=== PATIENT | female | born 1985 | race Caucasian/White ===

== ENCOUNTER 2025-07-12 01:58 | Inpatient (IN) | payer SELFPAY ==
--- OUTSIDE RECORDS SUMMARY | 2021-11-07 04:37 | XMS_ITS | Continuity of Care Document ---
Author Organization [facility] Address [address] [facility] [place] [address] Phone Care Team Providers Care Gum Machine Filler Name Role Phone Delphine Erickson MD Unavailable Unavailable Allergies, Adverse Reactions, Alerts Substance Reaction Status Criticality Penicillins Unknown Active No Information Medications Medication Instructions Dosage Effective Dates (start - stop) Status Comments buprenorphine 8 mg-naloxone [address] 1 tablet by sublingual route 2 times every day allow to dissolve slowly in mouth without chewing or swallowing 1 tablet - Active DEAX: [id number] ferrous sulfate 325 mg (65 mg iron) tablet take 1 tablet by oral route 2 times every day 325 MG - Active ergocalciferol (vitamin D2) 1,250 mcg (50,000 unit) capsule take 1 capsule by oral route every week - Active ProAir HFA 90 mcg/actuation aerosol inhaler inhale 2 puff by inhalation route every 4 - 6 hours as needed - Active Lexapro 10 mg tablet take 1 tablet by oral route every day 10 MG - Active Procedures Procedure Date OFFICE/OUTPATIENT VISIT EST OFFICE/OUTPATIENT VISIT EST OFFICE/OUTPATIENT VISIT NEW Advance Directives Directive Yes / No Effective Date File Name No Information Encounters Encounter Description Practice Location Reason(s) For Visit Diagnoses Date Provider Providers Copied on Encounter [email or web address], [address] [facility] [place], [id number], [place] tel:[phone] [facility] No Information b-2 2 Partamian Krikor. [address] [place] [address], [id number], [place]. tel:[phone] OFFICE/OUTPA TIENT VISIT [facility], [address] [place], [place], [id number], [place] tel:[phone] [facility] 1 week mat f/u (chief complaint) Opioid dependence, uncomplicated b-1 2 Partamian Krikor. [address] [place] [address], [id number], [place]. tel:[phone] Referring Provider: Delphine Ann, [address] [place] [address], [id number] . tel:[phone] OFFICE/OUTPA TIENT VISIT [facility], [address] [place] [address], [id number], [place] tel:[phone] [facility] PT (chief complaint) Opioid dependence, uncomplicated b-0 2 Partamian Krikor. [address] [place] [address], [id number], [place]. tel:[phone] Referring Provider: Delphine Ann, [address] [place] [address], [id number] . tel:[phone] [facility], [address] [place] [address], [id number], [place] tel:[phone] [facility] Opioid dependence, uncomplicatedO ther retirement (current) drug therapy b-0 2 Partamian Krikor. [address] [place] [address], [id number], [place]. tel:[phone] [facility], [address] [place] [address], [id number], [place] tel:[phone] [facility] No Information Feb-0 2 Yeseniact Jones. [address] [place] [address], [id number], [place]. tel:[phone] OFFICE/OUTPA TIENT VISIT [facility], [address] [facility], [place], [place], [id number], [place] tel:[phone] [facility] Establishing care (chief complaint) Body mass index (BMI) 22.0-22.9, adultOpioid dependenceMajo r depressive disorder, recurrent, moderateDizzin ess and giddinessNicot ine dependence, cigarettes, uncomplicated 2 Maru Jones. [address] [place], [address], [place]. tel:[phone] Referring Provider: Karen Mahoney, [address] [place], [address]. tel:[phone] Family History Family Member Type Diagnosis Age At Onset Brother Problem attention defici t hyperactivity disorder Father Problem Cardiovascular disease Brother Problem Alive and well Brother Problem depression Mother Problem (finding) Paternal grandfather Problem heart attack Sister Problem Alive and well Sister Problem Bipolar schizophrenic Payers Payer name Insurance type Covered alliance party ID Gina celaya(s) Slide A Payer [phone] Social History Type Description Quantity Date Captured Comments Sex Female Smoking Status No Information Sexual Orientation Straight or heterosexual Gender Identity Female Chief Complaint And Reason For Visit No Information Reason For Referral Reason For Referral No Information Plan Of Treatment Date Type Action Status Goal Pap/HPV testing. Due on due Goal Td vaccine. Due on due Goal Depression scree shiv. Due on due Goal Influenza vaccine. Due on due Goal Tdap. Due on due Goal Td vaccine. Due on due Goal Pap/HPV testing. Due on due Goal Depression scree shiv. Due on due Goal Tdap. Due on due Goal Influenza vaccine. Due on due Goal Influenza vaccine. Due on due Goal Pap/HPV testing. Due on due Goal Depression scree shiv. Due on due Goal Tdap. Due on due Goal Td vaccine. Due on due Goal Pap/HPV testing. Due on due Goal Td vaccine. Due on due Goal Depression scree shiv. Due on due Goal Influenza vaccine. Due on due Goal Tdap. Due on due Goal Lifestyle education regardin g diet completed Referral Ordered: Referrals: Addiction Rehabilitation ordered Future Order: Lab Order DRUG MON ITOR, BUP AND NALOXONE, QN, URINE ([id number]), Scheduled for: Ordered Future Order: Lab Order DRUG MON ITOR, FENTANYL, QN, URINE ([id number]), Scheduled for: Ordered Future Order: Lab Order DRUG MON ITOR, PANEL 1, W/CONF, W/DL, URINE ([id number]), Scheduled for: Ordered History Of Present Illness Encounter Date Complaint History Of Prese nt Illness 1 week mat f/u Current dose: 16 mg Is your current dose working well for you: yes Are you taking films or tab tab- she doesnt think it work as well as films Are having any cravings: noAre you experiencing any withdrawal symptoms:Have you relapsed on any illicit substance since your last f/u: noDid you have enough medication to get you to your appt today: yes UDS collected this datePrevious lab results reviewedReviewed proper administration techniqueDo you have Narcan:Have you used your Narcan:What pharmacy [facility] you use[facility] Have you taken S uboxone yesIf taken Suboxone before, was it prescribed or bought off the street: streetWhat dose worked for you: 16mgWhat did you use last: norcoWhen was your last use: 5 months agoDo you have Narcan: noDo you prefer films or tabs: filmsWhat [facility] reviewed with patient and verbalizes understandingDiscussed side effectsReviewed program expectations, including UDS at every visitEducation provided on precipitated withdrawalReviewed procedure for lost/stolen medication and that the pt is responsible to keep medication safe.BH INTAKE: started when she left her fiance of 5 years, depressed, and angry, started to take norco 5-6 a day not prescribed to her. she states that she was told by a friend to take Suboxone and states that she has been taking it off the street. she states that she has been taking 2 Suboxone a day and it is working well for her. she states that she has been clean off of opiates for about 4 months. Establishing care Pt. would like to be referred to MAT program. Pt. states she is having dizzy spells that are constant. Dizziness happens with change of position and movement of head. Pt also states she has blurry vision with/without dizzy spells. Pt. Mother just passed recently.//RWRMADizziness has been getting worse over the past year. Feels imbalanced. The occurrence is random. No known head injury. The spells typically last between 5-10 minutes. Happens typically 3-4 times per day, daily. Patient reports increased stress and isn't sleeping well. 1.5 yrs ago moved away from ex. She reports she got "hooked on pills. She was purchasing [place] from a friend. She started taking Suboxone approx. 4 months ago (not prescribed). She verbalized that the Suboxone helps. Functional Status Date Functional Assessmen t No Information Instructions Date Instruction Additional Infor mation Worsening precaution s discussedRecommended trying OTC Meclizine Related to Dizziness and giddiness Encouraged patient t o discontinue smoking. Related to Nicotine dependence, cigarettes, uncomplicated Refer to MAT program Related to Opioid dependence Labs todayStart [place] proBlack box warning discussed- pt verbalized understandingWorsening precautions given- pt verbalized understandingDiscussed other services available such as counseling and referral to Psychiatrist Follow-up 1 month, sooner if needed Related to Major depressive disorder, recurrent, moderate Lifestyle education regarding di et Related to Body mass index [BMI] 22.0-22.9, adult Giving encouragement to exercise Related to Body mass index [BMI] 22.0-22.9, adult Assessments Type Assessment Date No Information Patient Care Teams Name Effective Dates (start - stop) Status Members No Information
--- OUTSIDE RECORDS SUMMARY | 2021-11-07 04:37 | XMS_ITS | Continuity of Care Document ---
Author Organization [employer] Address [address] [facility] [place] [address] Phone Care Team Providers Care Production Cloth Cutter Name Role Phone Delphine Erickson MD Unavailable [...] or swallowing 1 tablet - Active DEAX: [id number] ergocalciferol (vitamin D2) 1,250 mcg (50,000 unit) capsule take 1 capsule by oral route every week - Active ferrous sulfate 325 mg (65 mg iron) tablet take 1 tablet by oral route 2 times every day 325 MG - Active ProAir HFA 90 mcg/actuation aerosol [...] Diagnoses Date Provider Providers Copied on Encounter [facility], [address] [facility] [place], [id number], [place] tel:[phone] [facility] No Information b-2 2 Partamian Krikor. [address] [place] [address], [id number], [place]. tel:[phone] OFFICE/OUTPA TIENT VISIT [facility], [address] [place], [place], [id number], [place] tel:[phone] [facility] 1 week mat f/u (chief complaint) Opioid dependence, uncomplicated b-1 2 Partamian Krikor. [address] [place] [address], [id number], [place]. tel:[phone] Referring Provider: Delphine Ann, [address] [place] [address], [id number] . tel:[phone] OFFICE/OUTPA TIENT VISIT [facility], [address] [place] [address], [id number], [place] tel:[phone] [facility] PT (chief complaint) Opioid dependence, uncomplicated b-0 2 Partamian Krikor. [address] [place] [address], [id number], [place]. tel:[phone] Referring Provider: Delphine Ann, [address] [place] [address], [id number] . tel:[phone] [facility], [address] [place] [address], [id number], [place] tel:[phone] [facility] Opioid dependence, uncomplicatedO ther usp (current) drug therapy b-0 2 Partamian Krikor. [address] [place] [address], [id number], [place]. tel:[phone] [facility], [address] [place] [address], [id number], [place] tel:[phone] [facility] No Information Feb-0 2 Yeseniact Jones. [address] [place] [address], [id number], [place]. tel:[phone] OFFICE/OUTPA TIENT VISIT [facility], [address] [facility] [place], [place], [id number], [place] tel:[phone] [facility] Establishing care (chief complaint) Body mass index (BMI) 22.0-22.9, adultOpioid dependenceMajo r depressive disorder, recurrent, moderateDizzin ess and giddinessNicot ine dependence, cigarettes, uncomplicated 2 Maru Jones. [address] [place], [address], [place]. tel:[phone] Referring Provider: Karen Mahoney, [address] [place], [address]. tel:[phone] Family History Family Member Type Diagnosis Age [...] Of Treatment Date Type Action Status Goal Influenza vaccine. Due on due Goal Pap/HPV testing. Due on due Goal Td vaccine. Due on due Goal Depression scree shiv. Due on due Goal Tdap. Due on due Goal Tdap. Due on due Goal Influenza vaccine. Due on due Goal Depression scree shiv. Due on due Goal Td vaccine. Due on due Goal Pap/HPV testing. Due on due Goal Influenza vaccine. Due on due Goal Tdap. Due on due Goal Depression scree shiv. Due on due Goal Pap/HPV testing. Due [...] MON ITOR, BUP AND NALOXONE, QN, URINE ([id number]), Scheduled for: Ordered Future Order: Lab Order DRUG MON ITOR, FENTANYL, QN, URINE ([id number]), Scheduled for: Ordered Future Order: Lab Order DRUG MON ITOR, PANEL 1, W/CONF, W/DL, URINE ([id number]), Scheduled for: Ordered History Of Present Illness [...] or tabs: filmsWhat [facility] reviewed with patient and verbalizes understandingDiscussed [...] got "hooked on pills. She was purchasing [place] from a friend. She started taking Suboxone approx. 4 months ago (not prescribed). She verbalized that the Suboxone helps. Functional Status Date Functional Assessmen t No Information Instructions Date Instruction Additional Infor mation Encouraged patient t o discontinue smoking. Related to Nicotine dependence, cigarettes, uncomplicated Worsening precaution s discussedRecommended trying OTC Meclizine Related to Dizziness and giddiness Refer to MAT program Related to Opioid dependence Labs todayStart [place] proBlack box warning discussed- pt verbalized understandingWorsening [...]
[2025-07-12 01:58] VITALS: BP 116/84; PULSE 104; RESP 16; TEMP 36.9; O2SAT 96; BMI 24.7
[2025-07-12 02:28] LABS: Glucose Urine UA Negative (Normal); Nitrate Urine Negative (Negative); Specific Gravity, Urine 1.013 (1.005-1.030)
[2025-07-12 02:33] LABS: Add Urine Microscopic? YES
[2025-07-12 02:35] LABS: PCP Screen Urine Negative (Negative)
[2025-07-12 02:43] LABS: Hematocrit 36.6 % (36-47); Hemoglobin 11.90 g/dL (11.27-16.99); Mean Corpuscular HGB Conc 32.5 g/dL (30-55); Mean Corpuscular Hemoglobin 27.9 pg (27-33); Mean Corpuscular Volume 85.7 fl (85-98); Nucleated Red Blood Cells % 0 %; Platelet Count 258 10^3/cmm (157-399); Red Blood Count 4.27 10^6/uL (3.85-5.65); White Blood Count 4.83 10^3/uL (3.29-11.43)
[2025-07-12 03:01] LABS: Alanine Aminotransferase 6 U/L (0-33); Albumin Level 4.4 g/dL (3.5-5.2); Alkaline Phosphatase 47 U/L (35-105); Anion Gap 15.7 (5-19); Aspartate Amino Transferase 13 U/L (0-32); Blood Urea Nitrogen 7 mg/dL (6-20); Calcium 8.9 mg/dL (8.5-10.5); Carbon Dioxide 30 mmol/L (22-29); Chloride 100 mmol/L (98-107); Creatinine Clr Calc Pharmacy 106.2666; Globulin 3.0 g/dL (1.3-4.6); Glucose 106 mg/dL (65-115); Osmolality Calculated 292 mOsm/kg (285-295); Potassium 3.7 mmol/L (3.5-5.1); Sodium 142 mmol/L (136-145); Total Protein 7.4 g/dL (6.6-8.7)
[2025-07-12 03:03] LABS: Acetaminophen < 5.0 ug/mL (10-30); Salicylate < 0.3 mg/dL (3-10)
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
--- NOTE | 2025-07-12 09:23 | PC.NURSE ---
Breakfast tray delivered to pt
--- NOTE | 2025-07-12 12:38 | PC.NURSE ---
Pt provided with lunch tray
[2025-07-12 15:09] VITALS: BP 116/81; PULSE 108; RESP 16; TEMP 36.7; O2SAT 97
[2025-07-12 22:00] VITALS: BP 121/87; PULSE 98; RESP 17; TEMP 36.7; O2SAT 99
[2025-07-13 06:00] VITALS: BP 110/79; PULSE 96; RESP 17; TEMP 36.5; O2SAT 96
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
[2025-07-13 14:00] VITALS: BP 129/89; PULSE 96; RESP 18; TEMP 36.8; O2SAT 99
[2025-07-13 20:59] VITALS: BP 133/91; PULSE 81; RESP 17; TEMP 36.7; O2SAT 98
[2025-07-14 06:00] VITALS: BP 117/81; PULSE 92; RESP 18; TEMP 36.7; O2SAT 99
[2025-07-14 14:00] VITALS: BP 134/87; PULSE 96; RESP 17; TEMP 36.4; O2SAT 100
--- NOTE | 2025-07-14 15:35 | P.NPUPN_ITS ---
Subjective NPU 2 Subjective: Patient presented today reporting she is tolerating the lithium well. We discussed moving with our plan to initiate Lexapro 10 mg p.o. daily, discussing the risks, benefits and alternatives she understood and agreed to proceed as is documented in this note. She denied any side effects of the medication. Mental Status Exam 2 MSE Comments: This is a well-nourished, well-developed white female in hospital scrubs with limited grooming but appropriate eye contact. No abnormal movements except for mild psychomotor retardation. Cooperative with exam and mild distress. Speech was decreased rate and volume. Mood described as depressed and anxious, affect congruent. Thought process organized. Thought content: Patient denied current suicidal or homicidal ideation but did acknowledge lethality leading to her presentation at the hospital. There were no delusions reported or noted, she denied any auditory or visual hallucinations. Experiences suicidal thoughts, with a history of acting on them once in 2009. Reports seeing shadows, described as a common optical illusion. Suffers from anxiety characterized by constant worrying and withdrawal, and depression with feelings of sadness, helplessness, hopelessness, worthlessness, and lack of motivation. Sleep patterns fluctuate between insomnia and hypersomnia, currently experiencing insomnia. Appetite issues are present, with periods of minimal eating, but currently improved with anxiety medication. Recent stressors include family issues and legal proceedings. Mood is reported as good today. Attention and concentration were intact and memory appeared mostly reliable but none were formally tested. She is alert and oriented x 3. Insight and judgment appeared fair and impulse control appeared limited. Vitals/I&O/Wt Last Vital Signs Temp 97.5 F L 07/14/25 14:00 Pulse 96 07/14/25 14:00 Resp 17 07/14/25 14:00 BP 134/87 07/14/25 14:00 Pulse Ox 100 07/14/25 14:00 O2 Del Method Room Air 07/14/25 06:00 Data NPU 07/12/25 02:37 07/12/25 02:37 A&P Assessment and plan 1. Bipolar disorder: 2. CARLOS (generalized anxiety disorder): 3. PTSD (post-traumatic stress disorder): 4. Alcohol use disorder, mild, in early remission: Plan: This is a 40-year-old female with history of depression, anxiety and PTSD who presented absent concerns of addiction, off of her medication desiring getting back on appropriate medications. Depression, with onset at age 15 and recurrent episodes, including current symptoms of low motivation, appetite disturbance, and sleep disturbance. Anxiety, characterized by excessive worrying, social withdrawal, and recent exacerbation related to psychosocial stressors. PTSD, with history of trauma and associated nightmares and flashbacks. Sleep disturbance, currently manifesting as insomnia. History of suicidal ideation and one suicide attempt in 2009, with recent passive wishes and recurrence of suicidal thoughts in the past week. Obsessive- compulsive hand washing behavior. History of alcohol use disorder, previously problematic during residence in [place], last noted 4.5 months ago. Plan Restarted lithium therapy as a foundational mood stabilizer, with administration of 300 mg tonight before bed. Anticipated initiation of an antidepressant or anti-anxiety medication, such as Prozac or Lexapro, to be considered tomorrow based on clinical response. Scheduled follow-up appointment for reassessment tomorrow. 1.? Initiated lithium 300 mg p.o. nightly. Now start Lexapro 10 mg p.o. daily 2.??Continue every 15 minute checks for safety. 3.??Encourage individual, group and milieu therapies. 4. Obtain collateral information. 5. Evaluate affidavits for concerns for safety. PDMP PDMP Reviewed: Not Reviewed Involuntary Hold Information 2 Hold Status: Date/Time Hold Expires: [facility] Attestations NPU 2 Medical Necessity Statement*: Inpatient hospitalization is medically necessary and the clinically appropriate intervention at this time.? We will monitor/initiate medications and make changes as indicated.? The patient?s likely length of stay 2-5 days. Coding Level of Care Code Acute Code for [facility] Diagnoses Bipolar disorder F31.9 CARLOS (generalized anxiety disorder) F41.1 PTSD (post-traumatic stress disorder) F43.10 Alcohol use disorder, mild, in early remission F10.11
[2025-07-14 20:19] VITALS: BP 138/92; PULSE 100; RESP 16; TEMP 36.5; O2SAT 100
[2025-07-15 06:00] VITALS: BP 123/89; PULSE 81; RESP 16; TEMP 36.7; O2SAT 98
[2025-07-15 14:00] VITALS: BP 136/93; PULSE 99; RESP 16; TEMP 36.6; O2SAT 98
--- NOTE | 2025-07-15 17:24 | P.NPUPN_ITS ---
Subjective NPU 2 Subjective: Patient presented today reporting that she is doing fine. She endorsed managing the medications without incident or concern. We discussed that she is still feeling better tomorrow that she could likely discharge given to voluntary and is raise no concerns. We discussed the fact that she had been managed on a dose of lithium in the past that required monitoring for levels. Jessica was not given as an adjunctive medication vet as a mood stabilizing patient. We discussed the risks, benefits and alternatives of increasing her lithium to 600 mg daily after discharge and she understood and agreed to proceed as documented in this note. We discussed that after a week or so she could get a lithium level and that would allow her outpatient providers. She denied any side effects to the medications. Mental Status Exam 2 MSE Comments: This is a well-nourished, well-developed white female in hospital scrubs with limited grooming but appropriate eye contact. No abnormal movements except for mild psychomotor retardation. Cooperative with exam and mild distress. Speech was more normal rate and volume. Mood described as feeling better, affect congruent and brighter. Thought process organized. Thought content: Patient denied current suicidal or homicidal ideation but did acknowledge lethality leading to her presentation at the hospital. There were no delusions reported or noted, she denied any auditory or visual hallucinations. Experiences suicidal thoughts, with a history of acting on them once in 2009. Reports seeing shadows, described as a common optical illusion. Suffers from anxiety characterized by constant worrying and withdrawal, and depression with feelings of sadness, helplessness, hopelessness, worthlessness, and lack of motivation. Sleep patterns fluctuate between insomnia and hypersomnia, currently experiencing insomnia. Appetite issues are present, with periods of minimal eating, but currently improved with anxiety medication. Recent stressors include family issues and legal proceedings. Mood is reported as good today. Attention and concentration were intact and memory appeared mostly reliable but none were formally tested. She is alert and oriented x 3. Insight and judgment appeared fair and impulse control appeared limited. Vitals/I&O/Wt Last Vital Signs Temp 98.0 F 07/15/25 20:51 Pulse 109 H 07/15/25 20:51 Resp 18 07/15/25 20:51 BP 125/84 07/15/25 20:51 Pulse Ox 97 07/15/25 20:51 O2 Del Method Room Air 07/15/25 20:51 Weight last 48 hrs Weight 59.874 kg Data NPU 07/12/25 02:37 07/12/25 02:37 A&P Assessment and plan 1. Bipolar disorder: 2. CARLOS (generalized anxiety disorder): 3. PTSD (post-traumatic stress disorder): 4. Alcohol use disorder, mild, in early remission: Plan: This is a 40-year-old female with history of depression, anxiety and PTSD who presented absent concerns of addiction, off of her medication desiring getting back on appropriate medications. Depression, with onset at age 15 and recurrent episodes, including current symptoms of low motivation, appetite disturbance, and sleep disturbance. Anxiety, characterized by excessive worrying, social withdrawal, and recent exacerbation related to psychosocial stressors. PTSD, with history of trauma and associated nightmares and flashbacks. Sleep disturbance, currently manifesting as insomnia. History of suicidal ideation and one suicide attempt in 2009, with recent passive wishes and recurrence of suicidal thoughts in the past week. Obsessive- compulsive hand washing behavior. History of alcohol use disorder, previously problematic during residence in [place], last noted 4.5 months ago. Plan Restarted lithium therapy as a foundational mood stabilizer, with administration of 300 mg tonight before bed. Anticipated initiation of an antidepressant or anti-anxiety medication, such as Prozac or Lexapro, to be considered tomorrow based on clinical response. Scheduled follow-up appointment for reassessment tomorrow. 1.? Initiated lithium 300 mg p.o. nightly. Started Lexapro 10 mg p.o. daily. Discussed possibility or likelihood of discharging her on 600 mg of lithium daily. 2.??Continue every 15 minute checks for safety. 3.??Encourage individual, group and milieu therapies. 4. Obtain collateral information. 5. Evaluate affidavits for concerns for safety. Tentative plan for discharge tomorrow PDMP PDMP Reviewed: Not Reviewed Involuntary Hold Information 2 Hold Status: Date/Time Hold Expires: vol Attestations NPU 2 Medical Necessity Statement*: Inpatient hospitalization is medically necessary and the clinically appropriate intervention at this time.? We will monitor/initiate medications and make changes as indicated.? The patient?s likely length of stay 1-3 days. Coding Level of Care Code Acute Code for [facility] Diagnoses Bipolar disorder F31.9 CARLOS (generalized anxiety disorder) F41.1 PTSD (post-traumatic stress disorder) F43.10 Alcohol use disorder, mild, in early remission F10.11
[2025-07-15 20:51] VITALS: BP 125/84; PULSE 109; RESP 18; TEMP 36.7; O2SAT 97
[2025-07-16 06:00] VITALS: BP 117/92; PULSE 83; RESP 18; TEMP 36.5; O2SAT 97
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
[2025-07-16 12:31] VITALS: BP 117/92; PULSE 83; RESP 18; TEMP 36.5; O2SAT 97
[2025-07-16 12:43] VITALS: BP 124/90; PULSE 107; RESP 16; TEMP 36.8; O2SAT 98
== END 2025-07-16 13:58 | disposition home or self-care (01) | DRG 885 ==
LOC: ER 05:22 → ER IP 08:58 → NP 14:05
PROVIDERS: Student in an Organized Health Care Education/Training Program; Admitting Provider Psychiatry & Neurology Psychiatry; Emergency Provider Family Medicine; Visit Provider Psychiatry & Neurology Psychiatry
DX: F31.9 Bipolar disorder, unspecified (principal); R45.851 Suicidal ideations; F43.10 Post-traumatic stress disorder, unspecified; F41.1 Generalized anxiety disorder; Z91.51 Personal history of suicidal behavior; Z88.0 Allergy status to penicillin; F17.290 Nicotine dependence, other tobacco product, uncomplicated; Z62.810 Personal history of physical and sexual abuse in childhood; Z81.8 Family history of other mental and behavioral disorders; Z81.3 Family history of other psychoactive substance abuse and dependence; Z81.1 Family history of alcohol abuse and dependence; J45.909 Unspecified asthma, uncomplicated; F10.21 Alcohol dependence, in remission; Z91.148 Patient's other noncompliance with medication regimen for other reason
CPT/HCPCS: 36415; 80053; 80306; 80307; 81001; 85025; 97150; 97165; 99285; J9999